=== PATIENT | male | born 1945 | race Caucasian/White ===

== ENCOUNTER → 2018-11-17 | Day surgery (SDC) | payer OTHER, MEDICARE ==
[~2018-11-17] VITALS: Ht 182.9 cm; Wt 93.5 kg
[~2018-11-17] MED LIST: AMPICILLIN SODIUM 1 GM/VIAL ONE; ASPI81 PO; BISA-151 PO; CHOL50004 PO; DILT60SR PO; DIVA-76 PO; EPHEDrine SULFATE 50 MG/ML VIAL IM ONE; FentaNYL CITRATE-PF 100 MCG/2 ML VIAL IVP ONE; FentaNYL CITRATE-PF 100 MCG/2 ML VIAL IVP PRN; HYDROmorphone 2 MG/ML SYRINGE IVP PRN; LACT30L PO; LEVE500T53 PO; LORA1TAB3 PO; MEPERIDINE-PF 25 MG/ML VIAL IVP PRN; ONDANSETRON HCL 4 MG/2 ML VIAL IVP ONE; ONDANSETRON HCL 4 MG/2 ML VIAL IVP PRN; PB65I PO; PROPOFOL 1% 20 ML VIAL IVP ONE; RINGERS SOLUTION,LACTATED 1,000 ML IV ONE; SUCCINYLCHOLINE CHLORIDE 20 MG/ML 10 ML VIAL IVP ONE; SULF1TAB42 PO
== END | disposition home or self-care (01) ==
LOC: SURGERY 05:52
PROVIDERS: ATTEND Dentist General Practice
DX: K05.30 Chronic periodontitis, unspecified (principal); I10 Essential (primary) hypertension; I48.91 Unspecified atrial fibrillation; G40.909 Epilepsy, unspecified, not intractable, without status epilepticus; E55.9 Vitamin D deficiency, unspecified; F70 Mild intellectual disabilities; Z79.82 Long term (current) use of aspirin; Z79.899 Other long term (current) drug therapy; Z98.890 Other specified postprocedural states
CPT/HCPCS: 41899; J0290; J0330; J2405; J2704; J3010; J3490; J7120